=== PATIENT | female | born 2000 | race Caucasian/White ===

== ENCOUNTER 2020-11-08 00:19 | Emergency (ER) | payer OTHER ==
[~2020-11-08] VITALS: Ht 149.9 cm; Wt 54.4 kg
[2020-11-08 00:25] VITALS: BP_SYST 110
--- NOTE | 2020-11-08 00:25 | NUR ---
Patient triaged and placed in waiting room. VSS and patient appears in no acute distress at this time. Accompanied by boyfriend, awaiting available bed, and MD notified of need for MSE.
--- NOTE | 2020-11-08 01:51 | NUR ---
Urine HCG done, results negative.
--- NOTE | 2020-11-08 03:06 | NUR ---
Patient to ER bed 6 to gown for evaluation. Side rails up. Report given to Blake COTA.
--- NOTE | 2020-11-08 03:08 | NUR ---
Dr. Escalona bedside for pt eval
--- NOTE | 2020-11-08 03:12 | NUR ---
PT BIB FAMILY TO ED C/O RT LOWER BACK PAIN AND BODY PAIN X 2 DAYS. SHE WAS DRINGKING ALCOHOL 2 DAYS AGO AND CANNOT REMEMBER ANYTHING. VSS NO S/S OF ACUTE DISTRESS
[2020-11-08 03:45] VITALS: BP_SYST 110
--- NOTE | 2020-11-08 03:45 | NUR ---
Patient given written and verbal discharge instructions and verbalizes understanding. ER MD discussed with patient the results and treatment provided. Patient in stable condition. ID arm band removed. Patient educated on pain management and to follow up with PMD. Pain Scale 0/10 Opportunity for questions provided and answered.
== END 2020-11-08 03:45 | disposition home or self-care (01) ==
LOC: SED 00:19
DX: S39.012A Strain of muscle, fascia and tendon of lower back, initial encounter (principal); X50.9XXA Other and unspecified overexertion or strenuous movements or postures, initial encounter; Y93.89 Activity, other specified; Y92.89 Other specified places as the place of occurrence of the external cause; Y99.8 Other external cause status
CPT/HCPCS: 81002; 81025; 99282